=== PATIENT | male | born 1965 | race Caucasian/White ===

== ENCOUNTER 2018-05-03 15:31 | Inpatient (IN) | payer MEDICARE, MEDICAID ==
[~2018-05-03] VITALS: Ht 167.6 cm; Wt 88.5 kg
[2018-05-03] MEDS ORDERED: IBUP-2354 PO (16:25)
[2018-05-03 17:06] LABS: BASOPHILS % (AUTO) 1.4 % (0.0-2.0); EOSINOPHILS % (AUTO) 3.1 % (1.0-6.0); HEMATOCRIT 43.3 % (41-53); HEMOGLOBIN 14.8 g/dL (13.5-17.5); LYMPHOCYTES # (AUTO) 2.4 K/uL (1.0-4.8); LYMPHOCYTES % (AUTO) 28.8 % (22.0-44.0); MEAN CORPUSCULAR HEMOGLOBIN 31.3 pg (26.0-34.0); MEAN CORPUSCULAR HGB CONC 34.1 G/dL (31.0-37.0); MEAN CORPUSCULAR VOLUME 92 fL (80-100); MONOCYTES # (AUTO) 0.5 K/uL (0.1-1.0); NEUTROPHILS # (AUTO) 5.1 K/uL (1.8-7.7); NEUTROPHILS % (AUTO) 60.7 % (40.0-70.0); PLATELET COUNT (AUTO) 303 K/uL (150-450); RED BLOOD CELL COUNT(AUTO) 4.72 MIL/uL (4.50-5.90); RED CELL DISTRIBUTION WIDTH 14.2 % (11.5-14.5)
[2018-05-03 17:18] LABS: ANION GAP 10 mmol/L (8-16); CALCIUM, TOTAL 9.4 mg/dL (8.8-10.5); CARBON DIOXIDE 28 mmol/L (22-29); CHLORIDE 105 mmol/L (98-107); CREATININE 0.82 mg/dL (0.60-1.30); GLOMERULAR FILTR. RATE CALC > 60 mL/min (>60); GLUCOSE,RANDOM 84 mg/dL (70-110); POTASSIUM 3.7 mmol/L (3.5-5.1); SODIUM SERUM 143 mmol/L (136-145); UREA NITROGEN, BLOOD 22 mg/dL (7-18)
[2018-05-03 17:21] LABS: ALANINE AMINOTRANSFERASE 25 U/L (12-78); ALBUMIN 3.6 g/dL (3.4-5.0); ALKALINE PHOSPHATASE 57 U/L (46-116); ASPARTATE AMINOTRANSFERASE 25 U/L (15-37); BILIRUBIN,TOTAL 0.4 mg/dL (0.1-1.0); TOTAL PROTEIN, SERUM 7.7 g/dL (6.4-8.2)
[2018-05-03] MEDS ORDERED: OLANZapine 5 MG RAPDIS TABLET PO PRN (18:00)
[2018-05-03] MEDS ORDERED: ZOLPIDEM TARTRATE 10 MG TABLET PO PRN (18:00)
[2018-05-03 18:35] LABS: AMPHET/METH SCREEN,URINE NEGATIVE (NEGATIVE); BARBITURATE SCREEN, URINE NEGATIVE (NEGATIVE); BENZODIAZEPINES SCREEN,URINE NEGATIVE (NEGATIVE); CANNABINOID SCREEN,URINE NEGATIVE (NEGATIVE); COCAINE SCREEN,URINE NEGATIVE (NEGATIVE); METHADONE SCREEN, URINE NEGATIVE (NEGATIVE); OPIATE SCREEN,URINE NEGATIVE (NEGATIVE)
[2018-05-03 18:36] LABS: PHENCYCLIDINE SCREEN,URINE NEGATIVE (NEGATIVE)
[2018-05-03 18:41] LABS: APPEARANCE,URINE CLEAR (CLEAR); GLUCOSE, URINE (UA) NEGATIVE (NEGATIVE); KETONES,URINE >=80 mg/dL (NEGATIVE); LEUKOCYTE ESTERASE ,URINE NEGATIVE (NEGATIVE); NITRATE,URINE NEGATIVE (NEGATIVE); OCCULT BLOOD,URINE MODERATE (NEGATIVE); PH,URINE 5.5 (5.0-8.0); PROTEIN,URINE POS 1+ (NEGATIVE); UROBILINOGEN,URINE 0.2 mg/dL (<=1.0)
[2018-05-03 18:43] LABS: BILIRUBIN,URINE PRELIM. POSITIVE (NEGATIVE)
[2018-05-03 19:01] LABS: WBC,URINE 0-2 /HPF (0-5)
[2018-05-03 19:02] LABS: BACTERIA,URINE Few /HPF (None Seen); SQUAMOUS EPITHELIAL CELL,UR Rare /LPF (None Seen)
[2018-05-03 19:03] LABS: CALCIUM OXALATE CRYSTALS,UR Few /LPF (None Seen); MUCUS,URINE Moderate LPF (None Seen)
[2018-05-04 00:26] VITALS: BP 133/99
[2018-05-04] MEDS ORDERED: LOPERAMIDE HCL 2 MG CAPSULE PO PRN ×2 (06:00→15:30)
[2018-05-04] MEDS ORDERED: ALBUTEROL SULFATE HFA 90 MCG/PUFF 8 GM INHALER IH PRN (06:00)
[2018-05-04] MEDS ORDERED: ONDANSETRON HCL 4 MG TABLET PO PRN (06:00)
[2018-05-04] MEDS ORDERED: MAGNESIUM HYDROXIDE SUSPENSION 30 ML UDCUP PO PRN ×2 (06:00→15:30)
[2018-05-04] MEDS ORDERED: IBUPROFEN 600 MG TABLET PO PRN (06:00)
[2018-05-04] MEDS ORDERED: BENZOCAINE/MENTHOL LOZENGE MM PRN (06:00)
[2018-05-04] MEDS ORDERED: ACETAMINOPHEN 325 MG TABLET PO PRN ×2 (06:00→15:30)
[2018-05-04] MEDS ORDERED: PETROLATUM,WHITE 71 GM JELLY TP PRN (06:00)
[2018-05-04] MEDS ORDERED: CloNIDine HCL 0.1 MG TABLET PO PRN (06:00)
[2018-05-04] MEDS ORDERED: BACITRACIN 28.4 GM OINTMENT TP PRN (06:00)
[2018-05-04] MEDS ORDERED: MAG HYDROX/AL HYDROX/SIMETH ES 30 ML SUSPENSION UDCUP PO PRN ×2 (06:00→15:30)
[2018-05-04 08:16] VITALS: BP 139/90
[2018-05-04 08:30] LABS: CHOL/HDL RATIO 3.3 (4.2-7.3); FREE T4 (FREE THYROXINE) 1.22 ng/dL (0.76-1.46); THYROID STIMULATING HORMONE 0.67 uIU/mL (0.36-3.74)
[2018-05-04] MEDS: OMEPRAZOLE 20 MG CAPSULE PO SCH (08:44)
[2018-05-04] MEDS: LORazepam 2 MG TABLET PO PRN ×2 (08:45→16:43)
[2018-05-04] MEDS: DOCUSATE SODIUM 100 MG CAPSULE PO SCH (08:45)
[2018-05-04] MEDS ORDERED: TUBERCULIN, PURIFIED PROTEIN DERIVATIVE 5 TU/0.1 ML SYG ID ONE (15:30)
[2018-05-04] MEDS ORDERED: HydrOXYzine PAMOATE 50 MG CAPSULE PO PRN (15:30)
[2018-05-04] MEDS ORDERED: GuaiFENesin/D-METHORPHAN [SUGAR-FREE] 200-20MG/10 ML SYRUP UDCUP PO PRN (15:30)
[2018-05-04] MEDS ORDERED: PROMETHAZINE HCL 25 MG TABLET PO PRN (15:30)
[2018-05-04 16:29] VITALS: BP 134/94
[2018-05-04] MEDS: THIAMINE HCL 100 MG TABLET PO SCH (16:43)
[2018-05-04] MEDS ORDERED: GABAPENTIN 300 MG CAPSULE PO SCH (17:00)
[2018-05-04] MEDS: PREGABALIN 25 MG CAPSULE PO SCH (21:43)
[2018-05-05 02:59] VITALS: BP 128/89
[2018-05-05 08:37] VITALS: BP 127/87
[2018-05-05] MEDS: MULTIVITAMINS WITH MINERALS, THERAPEUTIC TABLET PO SCH (09:03)
[2018-05-05] MEDS: NALTREXONE HCL 50 MG TABLET PO SCH (09:03)
[2018-05-05] MEDS: DOCUSATE SODIUM 100 MG CAPSULE PO SCH (09:03)
[2018-05-05] MEDS: FOLIC ACID 1 MG TABLET PO SCH (09:03)
[2018-05-05] MEDS: OMEPRAZOLE 20 MG CAPSULE PO SCH (09:03)
[2018-05-05] MEDS: THIAMINE HCL 100 MG TABLET PO SCH ×2 (09:04→16:41)
[2018-05-05] MEDS: DULoxetine HCL 20 MG CAPSULE PO SCH (09:04)
[2018-05-05] MEDS: PREGABALIN 25 MG CAPSULE PO SCH ×3 (09:04→16:41)
[2018-05-05 16:18] VITALS: BP 123/94
[2018-05-06 06:59] VITALS: BP 128/88
[2018-05-06 08:56] VITALS: BP 143/82
[2018-05-06] MEDS: FOLIC ACID 1 MG TABLET PO SCH (10:02)
[2018-05-06] MEDS: THIAMINE HCL 100 MG TABLET PO SCH ×2 (10:02→16:42)
[2018-05-06] MEDS: DULoxetine HCL 20 MG CAPSULE PO SCH (10:02)
[2018-05-06] MEDS: MULTIVITAMINS WITH MINERALS, THERAPEUTIC TABLET PO SCH (10:02)
[2018-05-06] MEDS: PREGABALIN 50 MG CAPSULE PO SCH ×3 (10:02→16:42)
[2018-05-06] MEDS: DOCUSATE SODIUM 100 MG CAPSULE PO SCH (10:02)
[2018-05-06] MEDS: NALTREXONE HCL 50 MG TABLET PO SCH (10:02)
[2018-05-06] MEDS: OMEPRAZOLE 20 MG CAPSULE PO SCH (10:02)
[2018-05-06 16:05] VITALS: BP 118/67
[2018-05-06 16:07] VITALS: BP 138/88
[2018-05-06] MEDS: LORazepam 2 MG TABLET PO PRN (16:43)
[2018-05-07 06:48] VITALS: BP 132/71
[2018-05-07 08:50] VITALS: BP 132/92
[2018-05-07] MEDS: FOLIC ACID 1 MG TABLET PO SCH (09:20)
[2018-05-07] MEDS: DULoxetine HCL 20 MG CAPSULE PO SCH (09:20)
[2018-05-07] MEDS: MULTIVITAMINS WITH MINERALS, THERAPEUTIC TABLET PO SCH (09:20)
[2018-05-07] MEDS: PREGABALIN 50 MG CAPSULE PO SCH ×2 (09:20→13:16)
[2018-05-07] MEDS: THIAMINE HCL 100 MG TABLET PO SCH ×2 (09:20→16:24)
[2018-05-07] MEDS: NALTREXONE HCL 50 MG TABLET PO SCH (09:20)
[2018-05-07] MEDS: OMEPRAZOLE 20 MG CAPSULE PO SCH (09:20)
[2018-05-07] MEDS: DOCUSATE SODIUM 100 MG CAPSULE PO SCH (09:20)
[2018-05-07 16:00] VITALS: BP 132/89
[2018-05-07] MEDS: PREGABALIN 75 MG CAPSULE PO SCH (16:26)
[2018-05-08 06:01] VITALS: BP 126/78
[2018-05-08 07:02] VITALS: BP 126/82
[2018-05-08] MEDS: PREGABALIN 75 MG CAPSULE PO SCH ×3 (09:19→16:12)
[2018-05-08] MEDS: DULoxetine HCL 20 MG CAPSULE PO SCH (09:19)
[2018-05-08] MEDS: OMEPRAZOLE 20 MG CAPSULE PO SCH (09:19)
[2018-05-08] MEDS: THIAMINE HCL 100 MG TABLET PO SCH ×2 (09:19→16:12)
[2018-05-08] MEDS: FOLIC ACID 1 MG TABLET PO SCH (09:19)
[2018-05-08] MEDS: DOCUSATE SODIUM 100 MG CAPSULE PO SCH (09:19)
[2018-05-08] MEDS: MULTIVITAMINS WITH MINERALS, THERAPEUTIC TABLET PO SCH (09:20)
[2018-05-08] MEDS: NALTREXONE HCL 50 MG TABLET PO SCH (09:20)
[2018-05-08 09:44] VITALS: BP 136/94
[2018-05-08 16:15] VITALS: BP 126/89
[2018-05-09 02:15] VITALS: BP 125/91
[2018-05-09 08:21] VITALS: BP 140/85
[2018-05-09] MEDS: DULoxetine HCL 20 MG CAPSULE PO SCH (08:40)
[2018-05-09] MEDS: MULTIVITAMINS WITH MINERALS, THERAPEUTIC TABLET PO SCH (08:40)
[2018-05-09] MEDS: OMEPRAZOLE 20 MG CAPSULE PO SCH (08:41)
[2018-05-09] MEDS: PREGABALIN 75 MG CAPSULE PO SCH ×3 (08:41→17:00)
[2018-05-09] MEDS: DOCUSATE SODIUM 100 MG CAPSULE PO SCH (08:41)
[2018-05-09] MEDS: NALTREXONE HCL 50 MG TABLET PO SCH (08:41)
[2018-05-09] MEDS: FOLIC ACID 1 MG TABLET PO SCH (08:41)
[2018-05-09] MEDS: THIAMINE HCL 100 MG TABLET PO SCH ×2 (08:41→17:00)
[2018-05-09 16:36] VITALS: BP 133/89
[2018-05-09] MEDS: LORazepam 2 MG TABLET PO PRN (17:00)
[2018-05-10 04:30] VITALS: BP 130/88
[2018-05-10 08:27] VITALS: BP 129/90
[2018-05-10] MEDS: OMEPRAZOLE 20 MG CAPSULE PO SCH (08:42)
[2018-05-10] MEDS: THIAMINE HCL 100 MG TABLET PO SCH ×2 (08:42→17:05)
[2018-05-10] MEDS: PREGABALIN 75 MG CAPSULE PO SCH ×3 (08:42→17:05)
[2018-05-10] MEDS: NALTREXONE HCL 50 MG TABLET PO SCH (08:42)
[2018-05-10] MEDS: MULTIVITAMINS WITH MINERALS, THERAPEUTIC TABLET PO SCH (08:42)
[2018-05-10] MEDS: FOLIC ACID 1 MG TABLET PO SCH (08:42)
[2018-05-10] MEDS: DOCUSATE SODIUM 100 MG CAPSULE PO SCH (08:43)
[2018-05-10] MEDS ORDERED: DULoxetine HCL 60 MG CAPSULE PO SCH (09:00)
[2018-05-10 16:00] VITALS: BP 125/85
[2018-05-11 03:47] VITALS: BP 133/84
[2018-05-11 08:17] VITALS: BP 123/91
[2018-05-11] MEDS: DOCUSATE SODIUM 100 MG CAPSULE PO SCH (08:53)
[2018-05-11] MEDS: THIAMINE HCL 100 MG TABLET PO SCH ×2 (08:53→16:33)
[2018-05-11] MEDS: OMEPRAZOLE 20 MG CAPSULE PO SCH (08:53)
[2018-05-11] MEDS: DULoxetine HCL 30 MG CAPSULE PO SCH (08:53)
[2018-05-11] MEDS: MULTIVITAMINS WITH MINERALS, THERAPEUTIC TABLET PO SCH (08:53)
[2018-05-11] MEDS: NALTREXONE HCL 50 MG TABLET PO SCH (08:53)
[2018-05-11] MEDS: PREGABALIN 75 MG CAPSULE PO SCH ×2 (08:54→12:27)
[2018-05-11] MEDS: FOLIC ACID 1 MG TABLET PO SCH (08:54)
[2018-05-11] MEDS: LORazepam 2 MG TABLET PO PRN (16:33)
[2018-05-11] MEDS: PREGABALIN 50 MG CAPSULE PO SCH (16:33)
[2018-05-11 16:34] VITALS: BP 125/84
[2018-05-12 03:03] VITALS: BP 116/80
[2018-05-12 08:38] VITALS: BP 111/79
[2018-05-12] MEDS: MULTIVITAMINS WITH MINERALS, THERAPEUTIC TABLET PO SCH (08:45)
[2018-05-12] MEDS: DULoxetine HCL 30 MG CAPSULE PO SCH (08:45)
[2018-05-12] MEDS: FOLIC ACID 1 MG TABLET PO SCH (08:45)
[2018-05-12] MEDS: DOCUSATE SODIUM 100 MG CAPSULE PO SCH (08:45)
[2018-05-12] MEDS: OMEPRAZOLE 20 MG CAPSULE PO SCH (08:45)
[2018-05-12] MEDS: THIAMINE HCL 100 MG TABLET PO SCH ×2 (08:45→16:49)
[2018-05-12] MEDS: NALTREXONE HCL 50 MG TABLET PO SCH (08:45)
[2018-05-12] MEDS: PREGABALIN 50 MG CAPSULE PO SCH ×3 (08:45→16:49)
[2018-05-12 16:19] VITALS: BP 118/84
[2018-05-13 01:19] VITALS: BP 124/85
[2018-05-13 08:18] VITALS: BP 112/70
[2018-05-13] MEDS: THIAMINE HCL 100 MG TABLET PO SCH ×2 (08:39→16:34)
[2018-05-13] MEDS: DULoxetine HCL 30 MG CAPSULE PO SCH (08:39)
[2018-05-13] MEDS: NALTREXONE HCL 50 MG TABLET PO SCH (08:40)
[2018-05-13] MEDS: PREGABALIN 50 MG CAPSULE PO SCH ×3 (08:40→16:34)
[2018-05-13] MEDS: DOCUSATE SODIUM 100 MG CAPSULE PO SCH (08:40)
[2018-05-13] MEDS: MULTIVITAMINS WITH MINERALS, THERAPEUTIC TABLET PO SCH (08:40)
[2018-05-13] MEDS: FOLIC ACID 1 MG TABLET PO SCH (08:40)
[2018-05-13] MEDS: OMEPRAZOLE 20 MG CAPSULE PO SCH (08:40)
[2018-05-13 16:33] VITALS: BP 115/78
[2018-05-14 06:14] VITALS: BP 102/60
[2018-05-14 08:00] VITALS: BP 112/75
[2018-05-14] MEDS: FOLIC ACID 1 MG TABLET PO SCH (08:49)
[2018-05-14] MEDS: DOCUSATE SODIUM 100 MG CAPSULE PO SCH (08:49)
[2018-05-14] MEDS: OMEPRAZOLE 20 MG CAPSULE PO SCH (08:49)
[2018-05-14] MEDS: MULTIVITAMINS WITH MINERALS, THERAPEUTIC TABLET PO SCH (08:49)
[2018-05-14] MEDS: NALTREXONE HCL 50 MG TABLET PO SCH (08:49)
[2018-05-14] MEDS: PREGABALIN 50 MG CAPSULE PO SCH (08:53)
[2018-05-14] MEDS ORDERED: DULoxetine HCL 60 MG CAPSULE PO SCH (09:00)
[2018-05-14] MEDS: THIAMINE HCL 100 MG TABLET PO SCH (09:06)
[2018-05-14] MEDS ORDERED: DULO60CA44 PO ×2 (12:41→13:20)
[2018-05-14] MEDS ORDERED: PREG50 PO ×2 (12:41→13:22)
[2018-05-14] MEDS ORDERED: NALT50TA PO (12:41)
[2018-05-14] MEDS ORDERED: NALT50TA6 PO (13:21)
== END 2018-05-14 13:30 | disposition home or self-care (01) | DRG 885 ==
LOC: EMS 15:32 → B3A 21:05
PROVIDERS: ADMIT Psychiatry & Neurology Psychiatry; ATTEND Psychiatry & Neurology Psychiatry
DX: F33.2 Major depressive disorder, recurrent severe without psychotic features (principal); F17.210 Nicotine dependence, cigarettes, uncomplicated; F41.9 Anxiety disorder, unspecified; G47.00 Insomnia, unspecified; E66.9 Obesity, unspecified; G89.29 Other chronic pain; Z62.810 Personal history of physical and sexual abuse in childhood; M54.5 Low back pain; K59.00 Constipation, unspecified; Z59.0 Homelessness; Z65.3 Problems related to other legal circumstances; Z68.32 Body mass index [BMI] 32.0-32.9, adult; Z91.19 Patient's noncompliance with other medical treatment and regimen; Z88.0 Allergy status to penicillin; Z71.6 Tobacco abuse counseling
CPT/HCPCS: 84439; 84443; 99406; G0480